=== PATIENT | male | born 1990 | race Caucasian/White ===

== ENCOUNTER 2017-11-24 11:03 | Emergency (ER) | END 2017-11-24 12:31 | disposition home or self-care (01) ==

== ENCOUNTER 2018-05-08 16:24 | Emergency (ER) | payer BC ==
[~2018-05-08] VITALS: Wt 64.0 kg
[~2018-05-08 16:24] MED LIST: ERYT1OIN6 RIGHT EYE; MINE3.5O30 RIGHT EYE
[2018-05-08] MEDS ORDERED: ACETAMINOPHEN 325 MG TAB PO ONE (19:30)
[2018-05-08] MEDS ORDERED: IBUP-1542 PO (20:16)
--- NOTE | 2018-05-08 20:17 | ERD ---
ER Documentation Chief Complaint Chief Complaint R FOOT PAIN X 4 DAYS HPI 27-year-old male presents with pain in the dorsum of his right ankle for the last 3 days. Denies any history of injury or fall. He has had some intermittent numbness on the medial aspect of his foot for several weeks as well. Denies any fevers, redness, additional symptoms. ROS All systems reviewed and are negative except as per history of present illness. Medications Home Meds Active Scripts Ibuprofen* (Motrin*) 600 Mg Tab, 600 MG PO Q6, #20 TAB Prov:GREER BAPTISTE MD 05/08/18 Erythromycin Base (Erythromycin) 1 Gm Oint...g., 1 APPLIC RIGHT EYE QID for 7 Days Prov:SHEFALI ROSE PA-C 11/24/17 Mineral Oil/Petrolatum,White (ARTIFICIAL TEARS EYE OINT) 3.5 Gm Oint...g., 1 APPLIC RIGHT EYE NEEDED PRN for DRY EYES, #1 EA Prov:SHEFALI ROSE PA-C 11/24/17 PMhx/Soc Medical and Surgical Hx: pt denies Medical Hx, pt denies Surgical Hx Hx Alcohol Use: No Hx Substance Use: No Hx Tobacco Use: No Smoking Status: Never smoker FmHx Family History: No diabetes, No coronary disease, No other Physical Exam Vitals Vital Signs Date Temp Pulse Resp B/P (MAP) Pulse Ox O2 O2 Flow FiO2 Time Delivery Rate 05/08/18 98.9 102 18 134/64 99 16:32 (87) Physical Exam Const: No acute distress Head: Atraumatic Eyes: Normal Conjunctiva ENT: Normal External Ears, Nose and Mouth. Neck: Full range of motion. No meningismus. Resp: Clear to auscultation bilaterally Cardio: Regular rate and rhythm, no murmurs Abd: Soft, non tender, non distended. Normal bowel sounds Skin: No petechiae or rashes Back: No midline or flank tenderness Ext: No cyanosis, or edema. Minimal tenderness on the dorsum of the right ankle joint. No effusion, warmth, erythema, restricted range of motion or weakness. Neur: Awake and alert Psych: Normal Mood and Affect Results 24 hrs Current Medications Medications Dose Sig/Amador Start Time Status Last (Trade) Ordered Route PRN Stop Time Admin Dose Reason Admin 650 mg ONCE ONCE 1/11/19 DC 05/08/18 Acetaminophen PO 19:30 19:30 (Tylenol 05/08/18 19:31 Tab) Procedures/MDM X-ray Ankle 3V Interpreted by me: Bones: No fracture Joints: No dislocation Foreign Body: None. Impression-normal right ankle x-ray Patient presents with right ankle discomfort with sensation of paresthesias mild pain. Is no evidence of fracture, dislocation, signs of infection, ischemia or deficits. he will be treated with ibuprofen, recommendations for primary care follow-up, ice and rest. Should follow-up with primary care doctor otherwise return for fevers, redness, new worsening symptoms. Departure Diagnosis: Primary Impression: Foot pain Laterality: right Qualified Codes: M79.671 - Pain in right foot Condition: Stable Patient Instructions: What Are Ankle Sprains?, Sprain Foot Additional Instructions: X-ray normal. Recommend rest, ice, elevate primary doctor for further evaluation for persistent pain. Recheck otherwise for fevers, new or worsening symptoms. GREER BAPTISTE MD May 08, 2018 20:17
[2018-05-08 20:23] VITALS: BP 132/62; PULSE 65; RESP 18
== END 2018-05-08 20:24 | disposition home or self-care (01) ==
LOC: FTE 16:24
DX: M79.671 Pain in right foot (principal)
CPT/HCPCS: 73610; 99283; Z7610